=== PATIENT | female | born 1995 | race Caucasian/White ===

== ENCOUNTER 2021-11-17 12:26 | Inpatient (IN) | payer OTHER ==
[~2021-11-17] VITALS: Ht 154.9 cm; Wt 50.8 kg
== END 2021-11-20 10:57 | disposition home or self-care (01) | DRG 833 ==
LOC: ER 12:26 → SEC-K 14:38 → OB/GYN 15:08
PROVIDERS: ADMIT Obstetrics & Gynecology; ATTEND Obstetrics & Gynecology
PROC: 4A1HXCZ Monitoring of Products of Conception, Cardiac Rate, External Approach (ICD-10-PCS; principal; 2021-11-17)
PROC: BU4CZZZ Ultrasonography of Uterus and Ovaries (ICD-10-PCS; 2021-11-17)
DX: O21.0 Mild hyperemesis gravidarum (principal); Z3A.01 Less than 8 weeks gestation of pregnancy; Z20.822 Contact with and (suspected) exposure to COVID-19

== ENCOUNTER 2021-11-22 16:22 | Emergency (ER) | payer OTHER ==
[~2021-11-22] VITALS: Ht 154.9 cm; Wt 50.8 kg
== END 2021-11-22 21:59 | disposition home or self-care (01) ==
LOC: ER 16:22
DX: O21.0 Mild hyperemesis gravidarum (principal); Z3A.00 Weeks of gestation of pregnancy not specified

== ENCOUNTER 2021-11-29 11:47 | Emergency (ER) | payer OTHER ==
[~2021-11-29] VITALS: Ht 154.9 cm; Wt 49.4 kg
[2021-11-29] MEDS ORDERED: DUI500 PO (16:18)
== END 2021-11-29 18:18 | disposition home or self-care (01) ==
LOC: ER 11:47
DX: O21.0 Mild hyperemesis gravidarum (principal); Z3A.01 Less than 8 weeks gestation of pregnancy; Z88.8 Allergy status to other drugs, medicaments and biological substances

== ENCOUNTER 2021-12-06 16:42 | Emergency (ER) | payer OTHER ==
[~2021-12-06] VITALS: Ht 154.9 cm; Wt 49.4 kg
[~2021-12-06 16:42] MED LIST: DUI500 PO
== END 2021-12-06 22:21 | disposition home or self-care (01) ==
LOC: ER 16:42
DX: O21.1 Hyperemesis gravidarum with metabolic disturbance (principal); Z3A.01 Less than 8 weeks gestation of pregnancy; O23.31 Infections of other parts of urinary tract in pregnancy, first trimester; N39.0 Urinary tract infection, site not specified

== ENCOUNTER 2021-12-07 15:33 | Inpatient (IN) | payer OTHER ==
[~2021-12-07] VITALS: Ht 154.9 cm; Wt 48.1 kg
== END 2021-12-09 11:27 | disposition home or self-care (01) | DRG 833 ==
LOC: SURH 15:33 → OB/GYN 15:54
PROVIDERS: ADMIT Obstetrics & Gynecology; ATTEND Obstetrics & Gynecology
PROC: 4A1HXCZ Monitoring of Products of Conception, Cardiac Rate, External Approach (ICD-10-PCS; principal; 2021-12-07)
DX: O21.0 Mild hyperemesis gravidarum (principal); Z20.822 Contact with and (suspected) exposure to COVID-19; Z3A.10 10 weeks gestation of pregnancy

== ENCOUNTER 2022-01-03 12:14 | Emergency (ER) | payer OTHER ==
[~2022-01-03] VITALS: Ht 154.9 cm; Wt 49.9 kg
== END 2022-01-04 00:06 | disposition home or self-care (01) ==
LOC: ER 12:14
DX: O21.0 Mild hyperemesis gravidarum (principal); Z3A.14 14 weeks gestation of pregnancy; Z88.8 Allergy status to other drugs, medicaments and biological substances; Z91.013 Allergy to seafood

== ENCOUNTER 2022-01-09 15:34 | Inpatient (IN) | payer OTHER ==
[~2022-01-09] VITALS: Ht 154.9 cm; Wt 49.0 kg
== END 2022-01-12 10:18 | disposition home or self-care (01) | DRG 833 ==
LOC: OB/GYN 15:34
PROVIDERS: ADMIT Obstetrics & Gynecology; ATTEND Obstetrics & Gynecology
PROC: 4A1HXCZ Monitoring of Products of Conception, Cardiac Rate, External Approach (ICD-10-PCS; principal; 2022-01-09)
DX: O21.0 Mild hyperemesis gravidarum (principal); Z3A.15 15 weeks gestation of pregnancy; Z20.822 Contact with and (suspected) exposure to COVID-19
CPT/HCPCS: 240

== ENCOUNTER 2022-06-05 11:17 | Inpatient (IN) | payer OTHER ==
[~2022-06-05] VITALS: Ht 154.9 cm; Wt 65.3 kg
== END 2022-06-08 14:16 | disposition home or self-care (01) | DRG 805 ==
LOC: LDR 11:17 → OB/GYN 06-06 14:02
PROVIDERS: ADMIT Obstetrics & Gynecology; ATTEND Obstetrics & Gynecology
PROC: 10E0XZZ Delivery of Products of Conception, External Approach (ICD-10-PCS; principal; 2022-06-05)
PROC: 4A1HXCZ Monitoring of Products of Conception, Cardiac Rate, External Approach (ICD-10-PCS; 2022-06-05)
DX: O70.1 Second degree perineal laceration during delivery (principal); O60.14X0 Preterm labor third trimester with preterm delivery third trimester, not applicable or unspecified; Z37.0 Single live birth; O42.013 Preterm premature rupture of membranes, onset of labor within 24 hours of rupture, third trimester; Z3A.36 36 weeks gestation of pregnancy; Z20.822 Contact with and (suspected) exposure to COVID-19